=== PATIENT | male | born 1985 | race Caucasian/White ===

== ENCOUNTER 2016-12-13 11:24 | Emergency (ER) | payer SELFPAY ==
--- NOTE | 2016-12-15 08:22 | ER ---
ADMIT: 12/13/2016 RM/LOC: [facility] MR#: [id number] [id number] [place], [place] [id number] JOSEPH [address]F [address] [place] [address] Emergency Room Report SEX: M AGE: 31 : 1985 DATE: 12/13/2016 TIME: 1124 hours. PRIMARY CARE: in [place]. Please refer to my T-sheet for complete H and P. HISTORY OF PRESENT ILLNESS: Briefly the patient is a 31-year-old, who comes in with kind of vague feeling. He suffers from morbid obesity. He has recently been diagnosed with a DVT that is kind of recurred, a couple of years ago, he had a DVT after a fracture of his leg that caused bilateral PEs. He has not been on Coumadin or any anticoagulation for a while until few days ago, he went in because his leg was swollen. They diagnosed a new DVT, put him on Xarelto. He was up walking, felt kind of this pressure across his chest. [place] lightheaded, did not pass out, felt a little sweaty. It is all resolved now. His is concerned. So, he came in. He says he feels absolutely normal now. PHYSICAL EXAMINATION: VITAL SIGNS: Blood pressure 119/70, pulse 72, respirations 17, temperature 97.1, and sat 97%. GENERAL: No acute distress. HEENT: Grossly normal. LUNGS: Clear. HEART: Regular. ABDOMEN: Morbidly obese and nontender. EXTREMITIES: His left leg is still slightly swollen although he says much improved. He is neurovascularly intact distally. EMERGENCY DEPARTMENT COURSE: CBC was normal except platelets 142. ADMIT: 12/13/2016 RM/LOC: [facility] MR#: [id number] [id number] JOSEPH METCALF [address] [place] [address] Emergency Room Report SEX: M AGE: 31 : 1985 Chemistries, normal except glucose 242, troponin was negative. EKG sinus rhythm, rate 71, no changes. Chest x-ray negative. I had a long discussion with him. He is ready for discharge. ASSESSMENT: 1. Chest pain, atypical. 2. Morbid obesity. 3. Diabetes. He is noncompliant at this time. PLAN: I put him back on him metformin. Return if worse. Continue his Xarelto. Follow up with his primary next week. He has an appointment already. Steve Gamboa MD/ jimmy JOB #: [id number] CC: Steve Gamboa MD, Attending Physician UNKNOWN, Family Physician
== END 2016-12-13 13:20 | disposition home or self-care (01) ==
LOC: ER 11:24
DX: R07.89 Other chest pain (principal); E66.01 Morbid (severe) obesity due to excess calories; E11.9 Type 2 diabetes mellitus without complications; Z91.19 Patient's noncompliance with other medical treatment and regimen; Z79.84 Long term (current) use of oral hypoglycemic drugs; Z87.891 Personal history of nicotine dependence; Z86.718 Personal history of other venous thrombosis and embolism; Z88.8 Allergy status to other drugs, medicaments and biological substances; Z79.899 Other long term (current) drug therapy